=== PATIENT | female | born 1940 | race Caucasian/White ===

== ENCOUNTER 2016-12-27 12:04 | Emergency (ER) | payer MEDICARE, BC ==
[~2016-12-27] VITALS: Ht 154.9 cm; Wt 82.6 kg
[~2016-12-27 12:04] MED LIST: BACTRIM DS 8001 TA1 PO; CELEBREX50 MG PO; PYRIDIUM200 MG PO; TRAMADOL HCL50 MG PO; ZOFRAN ODT4 MG SL
[2016-12-27 12:24] LABS: BASO # 0.1 10*3/uL (0.0-0.1); BASO % 0.6 % (0.0-1.0); EOS # 0.2 10*3/uL (0.0-0.4); EOS % 1.3 % (1.0-4.0); HEMOGLOBIN 13.2 g/dl (12.0-16.0); LYMPH # 2.9 10*3/uL (1.3-4.4); LYMPH % 19.7 % (27.0-41.0); MEAN CELL VOLUME 88.5 fl (81.0-99.0); MEAN CORPUSCULAR HGB 29.2 pg (27.0-31.0); MEAN PLATELET VOLUME 9.4 fl (9.6-12.3); MONO % 7.1 % (3.0-9.0); NEUT # 10.3 10*3/uL (2.3-7.9); PLATELET COUNT AUTOMATED 294 10*3/uL (130-400); RED BLOOD COUNT 4.52 10*6/uL (4.10-5.10); RED CELL DISTRI WIDTH 13.3 % (0-14.5); WHITE BLOOD COUNT 14.5 10*3/uL (4.8-10.8)
[2016-12-27 12:39] LABS: ALBUMIN 4.6 gm/dl (3.1-4.5); ALKALINE PHOSPHATASE 129 U/L (45-117); BILIRUBIN, TOTAL 0.4 mg/dl (0.2-1.0); BUN 16 mg/dl (7-24); CARBON DIOXIDE 27 mmol/L (21-32); CHLORIDE 104 mmol/L (98-107); EST GLOM FILT AFRICAN AMERICAN > 60 ml/min; GLUCOSE 124 mg/dL (65-99); SGOT/AST 18 IU/L (3-35); SGPT/ALT 20 U/L (12-78); SODIUM 139 mmol/L (136-145); TOTAL PROTEIN 8.2 gm/dL (6.4-8.2)
[2016-12-27 12:58] LABS: BILIRUBIN NEGATIVE (NEGATIVE); BLOOD 2+ (NEGATIVE); CLARITY SL CLOUDY (CLEAR); COLOR YELLOW (YELLOW); GLUCOSE NEGATIVE (NEGATIVE); KETONE NEGATIVE (NEGATIVE); LEUKO ESTERASE 1+ (NEGATIVE); NITRITE NEGATIVE (NEGATIVE); PROTEIN 2+ (NEGATIVE); SPECIFIC GRAVITY >= 1.030 (1.005-1.030); UROBILINOGEN 0.2 E.U./dl (0.2-1.0)
[2016-12-27 13:05] LABS: WBC 21-30 wbc/hpf (0-5)
[2016-12-27 13:06] LABS: BACTERIA 2+; URINE REFLEX COMMENT YES (NO)
[2016-12-27] MEDS ORDERED: ZOFRAN ODT4 MG SL (15:32)
[2016-12-27] MEDS ORDERED: FLOMAX0.4 MG PO (15:32)
[2016-12-27] MEDS ORDERED: NORCO 5-325 TA1 EACH PO (15:32)
[2016-12-27] MEDS ORDERED: MACROBID100 M1 PO (15:32)
== END 2016-12-27 15:54 | disposition home or self-care (01) ==
LOC: ED 12:04
PROVIDERS: Nurse Practitioner Family
DX: N20.0 Calculus of kidney (principal); N39.0 Urinary tract infection, site not specified; R31.9 Hematuria, unspecified; Z87.442 Personal history of urinary calculi

== ENCOUNTER 2021-08-28 14:03 | Emergency (ER) | payer OTHER, MEDICARE, BC ==
[~2021-08-28] VITALS: Wt 81.2 kg
[~2021-08-28 14:03] MED LIST changes: +FLOMAX0.4 MG PO; +MACROBID100 M1 PO; +NORCO 5-325 TA1 EACH PO
== END 2021-08-28 20:55 | disposition home or self-care (01) ==
LOC: ED 14:03
DX: S82.392C Other fracture of lower end of left tibia, initial encounter for open fracture type IIIA, IIIB, or IIIC (principal); S16.1XXA Strain of muscle, fascia and tendon at neck level, initial encounter; S09.90XA Unspecified injury of head, initial encounter; Z79.899 Other long term (current) drug therapy; Z90.710 Acquired absence of both cervix and uterus; Z98.890 Other specified postprocedural states; Z90.49 Acquired absence of other specified parts of digestive tract; V49.9XXA Car occupant (driver) (passenger) injured in unspecified traffic accident, initial encounter; Y93.89 Activity, other specified; Y92.89 Other specified places as the place of occurrence of the external cause; Y99.8 Other external cause status

== ENCOUNTER 2023-01-22 12:07 | Emergency (ER) | payer MEDICARE, BC ==
[~2023-01-22] VITALS: Ht 152.4 cm; Wt 78.0 kg
[~2023-01-22 12:07] MED LIST changes: +AMOX-CLAV 875-1 EACH PO; +ATORVASTATIN CA10 M1 PO; +CIPRO500 MG PO; +ENTRESTO 24 MG1 EACH PO; +METOPROLOL SUCC25 M2 PO; +METRONIDAZOLE500 M1 PO; +ULTRACET 325 MG1 TA1 PO
[2023-01-22] MEDS ORDERED: AMOX-CLAV 875-1 EACH PO (13:43)
[2023-01-22 13:46] LABS: BASO # 0.1 10*3/uL (0.0-0.1); BASO % 0.8 % (0.0-1.0); EOS # 0.2 10*3/uL (0.0-0.4); EOS % 2.4 % (1.0-4.0); HEMATOCRIT 36.9 % (37.0-47.0); LYMPH % 24.6 % (27.0-41.0); MEAN CELL VOLUME 89.8 fl (81.0-99.0); MEAN CORPUSCULAR HGB 29.4 pg (27.0-31.0); MEAN CORPUSCULAR HGB CONC 32.8 g/dl (33.0-37.0); MEAN PLATELET VOLUME 9.6 fl (9.6-12.3); MONO # 0.8 10*3/uL (0.1-1.0); NEUT # 5.2 10*3/uL (2.3-7.9); NEUT % 63.1 % (47.0-73.0); PLATELET COUNT AUTOMATED 281 10*3/uL (130-400); RED BLOOD COUNT 4.11 10*6/uL (4.10-5.10); RED CELL DISTRI WIDTH 13.8 % (0-14.5); WHITE BLOOD COUNT 8.3 10*3/uL (4.8-10.8)
[2023-01-22 14:24] LABS: ALKALINE PHOSPHATASE 125 U/L (46-116); BUN 17 mg/dl (9-23); CHLORIDE 106 mmol/L (98-107); POTASSIUM 4.9 mmol/L (3.4-5.1); SGPT/ALT 8 U/L (10-49); TOTAL PROTEIN 7.2 gm/dL (6.0-8.0)
== END 2023-01-22 14:16 | disposition home or self-care (01) ==
LOC: ED 12:07
PROVIDERS: Physician Assistant Medical
DX: S62.630B Displaced fracture of distal phalanx of right index finger, initial encounter for open fracture (principal); M19.90 Unspecified osteoarthritis, unspecified site; Z90.710 Acquired absence of both cervix and uterus; Z90.49 Acquired absence of other specified parts of digestive tract; Z96.653 Presence of artificial knee joint, bilateral; Z98.890 Other specified postprocedural states; Z87.442 Personal history of urinary calculi; W31.89XA Contact with other specified machinery, initial encounter; Y93.89 Activity, other specified; Y92.89 Other specified places as the place of occurrence of the external cause; Y99.8 Other external cause status

== ENCOUNTER 2024-12-27 15:05 | Emergency (ER) | payer MEDICARE, BC ==
[~2024-12-27] VITALS: Ht 152.4 cm; Wt 80.7 kg
[2024-12-27] MEDS ORDERED: SODIUM CHLORIDE 0.9% 1,000 ML IV ONE (15:30)
[2024-12-27] MEDS ORDERED: Ondansetron Hydrochloride 4 MG/2 ML VIAL IV ONE (15:30)
[2024-12-27] MEDS ORDERED: IOHEXOL 300 MG/ML 100 ML VIAL IV ONE (15:40)
[2024-12-27 16:09] LABS: BASO # 0.0 10*3/uL (0.0-0.1); BASO % 0.6 % (0.0-1.0); EOS # 0.1 10*3/uL (0.0-0.4); EOS % 1.6 % (1.0-4.0); MEAN CELL VOLUME 90.7 fl (81.0-99.0); MEAN CORPUSCULAR HGB 29.4 pg (27.0-31.0); MEAN PLATELET VOLUME 9.6 fl (9.6-12.3); MONO # 0.1 10*3/uL (0.1-1.0); MONO % 0.7 % (3.0-9.0); NEUT # 5.9 10*3/uL (2.3-7.9); NEUT % 83.4 % (47.0-73.0); NUCLEATED RED BLOOD CELL 0.0 % (0.0-0.0); NUCLEATED RED BLOOD CELL 0.0 10*3/uL (0.0-0.0); PLATELET COUNT AUTOMATED 245 10*3/uL (130-400); RED CELL DISTRI WIDTH 13.9 % (0-14.5)
[2024-12-27 16:27] LABS: BUN 24.0 mg/dl (9-23)
[2024-12-27 17:19] LABS: BILIRUBIN Negative (Negative); BLOOD 2+ (Negative); CLARITY Cloudy (Clear); COLOR Yellow (Yellow); KETONE Negative (Negative); LEUKO ESTERASE 2+ (Negative); NITRITE Positive (Negative); PH 5.0 (4.5-8.0); SPECIFIC GRAVITY 1.015 (1.001-1.030); UROBILINOGEN 0.2 E.U./dl (0.0-1.0)
[2024-12-27 17:27] LABS: BACTERIA 4+
[2024-12-27 17:28] LABS: WBC 41-50 wbc/hpf (0-5)
[2024-12-27] MEDS ORDERED: CELEBREX50 MG PO (18:56)
[2024-12-27] MEDS ORDERED: CELEBREX400 M1 PO (18:59)
== END 2024-12-27 21:13 | disposition short-term general hospital (02) ==
LOC: ED 15:05
PROVIDERS: Nurse Practitioner Family
DX: N13.9 Obstructive and reflux uropathy, unspecified (principal); N20.0 Calculus of kidney; N12 Tubulo-interstitial nephritis, not specified as acute or chronic; N18.9 Chronic kidney disease, unspecified; Z79.899 Other long term (current) drug therapy; Z90.49 Acquired absence of other specified parts of digestive tract; Z98.890 Other specified postprocedural states; Z96.653 Presence of artificial knee joint, bilateral